=== PATIENT | male | born 1960 | race American Indian/Alaskan Native ===

== ENCOUNTER 2021-03-04 11:15 | Observation (INO) | payer MEDICARE ==
[2021-03-04 12:17] LABS: Basophils % (Auto) 0.7 % (0.0-1.8); Eosinophils # (Auto) 0.3 K/mm3 (0.0-0.4); Eosinophils % (Auto) 6.9 % (0.0-4.3); Hematocrit 28.2 % (35.5-45.6); Hemoglobin 9.1 gm/dl (11.8-15.2); Lymphocytes # (Auto) 1.2 K/mm3 (1.2-5.4); Lymphocytes % (Auto) 24.9 % (13.4-35.0); Mean Corpuscular HGB Conc 32 % (32-34); Mean Corpuscular Volume 89 fl (84-94); Monocytes # (Auto) 0.4 K/mm3 (0.0-0.8); Monocytes % (Auto) 8.1 % (0.0-7.3); Platelet Count 197 K/mm3 (140-440); Red Blood Count 3.17 M/mm3 (3.65-5.03); Red Cell Distribution Width 16.6 % (13.2-15.2)
[2021-03-04 12:31] LABS: Calcium 8.6 mg/dL (8.4-10.2)
[2021-03-04] MEDS ORDERED: INSULIN REGULAR, HUMAN 100 UNITS/1 ML IV ONE (14:01)
[2021-03-04] MEDS ORDERED: ALBUTEROL 2.5 MG/3 ML NEBU IH ONE (14:01)
[2021-03-04] MEDS ORDERED: DEXTROSE 50% IN WATER (25GM) 50 ML SYRINGE IV ONE (14:01)
--- NOTE | 2021-03-04 14:09 | Emergency Department Report ---
HPI - General Chief Complaint: Dyspnea/Respdistress Time Seen by Provider: 03/04/21 13:54 - HPI HPI: This is a 60-year-old -[place]er male presents to the emergency department with the complaint of missing his last 3 weeks of dialysis. The patient lives in [place] but is up here for a job and never got set up for temporary dialysis in [place]. He admits to some mild shortness of breath and some dizziness/lightheadedness. He has a left arm fistula for vascular access. He denies any fever, cough, lower extremity swelling, nausea, vomiting, d iaphoresis. He also has a past medical history of hypertension. He has not taken anything for symptoms prior to presentation today. ED Past Medical Hx - Past Medical History Previous Medical History?: Yes Hx Hypertension: Yes Additional medical history: left arm fistula for HD - Surgical History Past Surgical History?: Yes Additional Surgical History: left arm fistula - Social History Smoking Status: Never Smoker Substance Use Type: None ED Review of Systems ROS: Stated complaint: DIALYSIS Other details as noted in HPI Comment: All other systems reviewed and negative Constitutional: denies: chills, fever Eyes: denies: eye pain, vision change ENT: denies: ear pain, throat pain Respiratory: shortness of breath. denies: cough Cardiovascular: denies: chest pain, palpitations Gastrointestinal: denies: abdominal pain, vomiting Genitourinary: denies: dysuria, discharge Musculoskeletal: denies: back pain, arthralgia Skin: denies: rash, lesions Neurological: denies: headache, weakness Physical Exam - Physical Exam Vital Signs: Vital Signs 03/04/21 11:31 Temperature 97.9 F Pulse Rate 73 Respiratory 20 Rate Blood Pressure 179/106 O2 Sat by Pulse 99 Oximetry Physical Exam: GENERAL: The patient is well-developed well-nourished. HENT: Normocephalic. Atraumatic. Patient has moist mucous membranes. EYES: Extraocular motions are intact. NECK: Supple. Trachea is midline. CHEST/LUNGS: Slightly coarse breath sounds. No tachypnea or accessory muscle use. HEART/CARDIOVASCULAR: Regular. There is no tachycardia. There is no murmur. ABDOMEN: Abdomen is soft, nontender. Patient has normal bowel sounds. There is no abdominal distention. SKIN: Skin is warm and dry. NEURO: The patient is awake, alert, and oriented. The patient is cooperative. The patient has no focal neurologic deficits. Normal speech. MUSCULOSKELETAL: There is no tenderness or deformity. There is no limitation range of motion. There is a patent left upper extremity dialysis fistula. ED Course Vital Signs 03/04/21 11:31 Temperature 97.9 F Pulse Rate 73 Respiratory 20 Rate Blood Pressure 179/106 O2 Sat by Pulse 99 Oximetry - Consultations Consultation #1: 03/04/21 14:08 I spoke to the patent chemist on-call, Dr. Foley, who is going to get the patient emergent dialysis this afternoon. ED Medical Decision Making - Lab Data Result diagrams: 03/04/21 11:57 03/04/21 11:57 Lab Results 03/04/21 03/04/21 Range/Units 11:57 11:57 WBC 4.9 (4.5-11.0) K/mm3 RBC 3.17 L (3.65-5.03) M/mm3 Hgb 9.1 L (11.8-15.2) gm/dl Hct 28.2 L (35.5-45.6) % MCV 89 (84-94) fl MCH 29 (28-32) pg MCHC 32 (32-34) % RDW 16.6 H (13.2-15.2) % Plt Count 197 (140-440) K/mm3 Lymph % (Auto) 24.9 (13.4-35.0) % [place] % (Auto) 8.1 H (0.0-7.3) % Eos % (Auto) 6.9 H (0.0-4.3) % Baso % (Auto) 0.7 (0.0-1.8) % Lymph # (Auto) 1.2 (1.2-5.4) K/mm3 [place] # (Auto) 0.4 (0.0-0.8) K/mm3 Eos # (Auto) 0.3 (0.0-0.4) K/mm3 Baso # (Auto) 0.0 (0.0-0.1) K/mm3 Seg Neutrophils % 59.4 (40.0-70.0) % Seg Neutrophils # 2.9 (1.8-7.7) K/mm3 Sodium 141 (137-145) mmol/L Potassium 7.4 H* (3.6-5.0) mmol/L Chloride 105.2 (98-107) mmol/L Carbon Dioxide 15 L (22-30) mmol/L Anion Gap 28 mmol/L BUN 121 H (9-20) mg/dL Creatinine 20.9 H (0.8-1.3) mg/dL Estimated GFR 2 ml/min BUN/Creatinine Ratio 6 % Glucose 104 H (75-100) mg/dL Calcium 8.6 (8.4-10.2) mg/dL - EKG Data -: EKG Interpreted by Me EKG shows normal: sinus rhythm, axis (Left axis deviation), intervals, QRS complexes, ST-T waves (There are some tented T waves to the anterolateral leads) Rate: normal - EKG Data When compared to previous EKG there are: previous EKG unavailable Interpretation: other (Sinus rhythm at 64 bpm, left axis deviation, normal intervals. No ST elevation NV. There are some tented T waves to the anterolateral leads.) - Radiology Data Radiology results: image reviewed interpreted by me: Chest x-ray shows some hyperinflation of the lungs. There is some mild cardiomegaly. No pleural effusions. No obvious pneumonia. No pneumothorax. - Medical Decision Making This patient presents to the emergency department with a complaint that he has missed his last 3 weeks of dialysis as he is visiting here from [place] and did not get dialysis set up here. He has some mild shortness of breath. He does not appear in any respiratory distress. Potassium came back at 7.5. The patient also has some uremia with a BUN of 120. Nephrology was contacted and consulted and they will provide emergency dialysis this afternoon. Patient was given albuterol, calcium, insulin and D50 for the hyperkalemia. He will be admitted to the hospital for dialysis and further evaluation and was accepted for admission by the hospitalist, Dr. Eagle. Critical Care Time: Yes Critical care time in (mins) excluding proc time.: 31 Critical care attestation.: If time is entered above; I have spent that time in minutes in the direct care of this critically ill patient, excluding procedure time. Critical care time was spent on this patient in doing his initial evaluation, multiple reevaluations, ordering and interpretation of labs and imaging, medications for treatment of the hyperkalemia, discussion with the nephrology service. Critical Care Time: 31 minutes ED Disposition Clinical Impression: ESRD needing dialysis, Hyperkalemia, Missed dialysis, Hypertensive urgency Disposition: DC-09 OP ADMIT IP TO THIS HOSP Is pt being admited?: Yes Condition: Serious Instructions: Hypertension (ED) Time of Disposition: 15:15
[2021-03-04] MEDS ORDERED: SODIUM CHLORIDE 0.9% 100 ML IV PRN (14:30)
[2021-03-04] MEDS ORDERED: CALCIUM GLUCONATE 1,000 MG in SODIUM CHLORIDE 0.9% 100 ML IV ONE (14:30)
--- NOTE | 2021-03-04 14:39 | XRay Report ---
CHEST 2 VIEWS INDICATION: SOB. COMPARISON: None. FINDINGS: Support devices: None. Heart: Within normal limits. Lungs/Pleura: Right lung clear. Mild atelectasis versus scarring left base. Mild underlying COPD. N o significant pleural effusion. IMPRESSION: Mild atelectasis versus scarring left base. Signer Name: Candido Lewis MD Signed: 03/04/2021 2:35 PM Workstation Name: [id number]
[2021-03-04 16:14] LABS: Hepatitis B Surface Antigen Non-Reactive (Negative); Hepatitis C Virus Antibody Non-Reactive (NonReactive)
--- NOTE | 2021-03-04 21:52 | History and Physical Report ---
History of Present Illness Date of examination: 03/04/21 Date of admission: 03/04/21 19:16 Chief complaint: Shortness of breath for couple of days History of present illness: This is a 60-year-old -[place] male presents to the emergency department with the complaint of missing his last 3 weeks of dialysis. The patient lives in [place] but is up here for a job and never got set up for temporary dialysis in [place]. He admits to some mild shortness of breath and some dizziness/lightheadedness. He has a left arm fistula for vascular access. He denies any fever, cough, lower extremity swelling, nausea, vomiting, diaphoresis. He also has a past medical history of hypertension. He has not taken anything for symptoms prior to presentation today. - Past Medical History Previous Medical History?: Yes Hx Hypertension: Yes Additional medical history: left arm fistula for HD - Surgical History Past Surgical History?: Yes Additional Surgical History: left arm fistula - Social History Smoking Status: Never Smoker Substance Use Type: None Family history Htn Review of Systems ROS: Stated complaint: DIALYSIS Other details as noted in HPI Comment: All other systems reviewed and negative Constitutional: denies: chills, fever Eyes: denies: eye pain, vision change ENT: denies: ear pain, throat pain Respiratory: shortness of breath. denies: cough Cardiovascular: denies: chest pain, palpitations Gastrointestinal: denies: abdominal pain, vomiting Genitourinary: denies: dysuria, discharge Musculoskeletal: denies: back pain, arthralgia Skin: denies: rash, lesions Neurological: denies: headache, weakness Medications and Allergies Allergies Allergy/AdvReac Type Severity Reaction Status Date / Time No Known Allergies Allergy Unverified 03/04/21 11:30 Home Medications Medication Instructions Recorded Confirmed Last Taken Type carvediloL [Coreg] 6.25 mg PO BID 03/05/21 03/05/21 03/03/21 21:00 History hydrALAZINE [Apresoline TAB] 100 mg PO TID 03/05/21 03/05/21 03/03/21 21:00 History labetaloL [Labetalol 200mg TAB] 200 mg PO BID 03/05/21 03/05/21 03/03/21 21:00 History Active Meds: Active Medications Sodium Chloride (Nacl 0.9%) 100 mls @ 999 mls/hr IV RICHIE PRN PRN Reason: Hypotension Exam - Constitutional Vitals: Temp Pulse Resp BP Pulse Ox 98.2 F 84 14 173/91 100 03/04/21 19:45 03/04/21 21:30 03/04/21 20:45 03/04/21 21:30 03/04/21 20:45 General appearance: Present: no acute distress, well-nourished - EENT Eyes: Present: PERRL ENT: hearing intact, clear oral mucosa - Neck Neck: Present: supple, normal ROM - Respiratory Respiratory effort: normal Respiratory: bilateral: CTA - Cardiovascular Heart rate: 78 Rhythm: regular Heart Sounds: Present: S1 & S2. Absent: rub, click - Extremities Extremities: pulses symmetrical, No edema Peripheral Pulses: within normal limits - Abdominal General gastrointestinal: Present: soft, non-tender, non-distended, normal bowel sounds Male genitourinary: Present: normal - Rectal Rectal Exam: deferred - Integumentary Integumentary: Present: clear, warm, dry - Musculoskeletal Musculoskeletal: gait normal, strength equal bilaterally - Psychiatric Psychiatric: appropriate mood/affect, intact judgment & insight - Neurologic Neurologic: CNII-XII intact, moves all extremities Results - Labs CBC & Chem 7: 03/05/21 05:06 03/05/21 05:06 Labs: Laboratory Last Values WBC 4.9 K/mm3 (4.5-11.0) 03/04/21 11:57 RBC 3.17 M/mm3 (3.65-5.03) L 03/04/21 11:57 Hgb 9.1 gm/dl (11.8-15.2) L 03/04/21 11:57 Hct 28.2 % (35.5-45.6) L 03/04/21 11:57 MCV 89 fl (84-94) 03/04/21 11:57 MCH 29 pg (28-32) 03/04/21 11:57 MCHC 32 % (32-34) 03/04/21 11:57 RDW 16.6 % (13.2-15.2) H 03/04/21 11:57 Plt Count 197 K/mm3 (140-440) 03/04/21 11:57 Lymph % (Auto) 24.9 % (13.4-35.0) 03/04/21 11:57 [place] % (Auto) 8.1 % (0.0-7.3) H 03/04/21 11:57 Eos % (Auto) 6.9 % (0.0-4.3) H 03/04/21 11:57 Baso % (Auto) 0.7 % (0.0-1.8) 03/04/21 11:57 Lymph # (Auto) 1.2 K/mm3 (1.2-5.4) 03/04/21 11:57 [place] # (Auto) 0.4 K/mm3 (0.0-0.8) 03/04/21 11:57 Eos # (Auto) 0.3 K/mm3 (0.0-0.4) 03/04/21 11:57 Baso # (Auto) 0.0 K/mm3 (0.0-0.1) 03/04/21 11:57 Seg Neutrophils % 59.4 % (40.0-70.0) 03/04/21 11:57 Seg Neutrophils # 2.9 K/mm3 (1.8-7.7) 03/04/21 11:57 Sodium 141 mmol/L (137-145) 03/04/21 11:57 Potassium 7.4 mmol/L (3.6-5.0) H* 03/04/21 11:57 Chloride 105.2 mmol/L (98-107) 03/04/21 11:57 Carbon Dioxide 15 mmol/L (22-30) L 03/04/21 11:57 Anion Gap 28 mmol/L 03/04/21 11:57 BUN 121 mg/dL (9-20) H 03/04/21 11:57 Creatinine 20.9 mg/dL (0.8-1.3) H 03/04/21 11:57 Estimated GFR 2 ml/min 03/04/21 11:57 BUN/Creatinine Ratio 6 % 03/04/21 11:57 Glucose 104 mg/dL (75-100) H 03/04/21 11:57 Calcium 8.6 mg/dL (8.4-10.2) 03/04/21 11:57 Hepatitis A IgM Ab Non-reactive (NonReactive) 03/04/21 15:15 Hep Bs Antigen Non-reactive (Negative) 03/04/21 15:15 Hep B Core IgM Ab Non-reactive (NonReactive) 03/04/21 15:15 Hepatitis C Antibody Non-reactive (NonReactive) 03/04/21 15:15 - Imaging and Cardiology EKG: report reviewed (Sinus rhythm no acute ST-T wave changes) Chest x-ray: report reviewed Imaging and Cardiology: 4151 chest x-ray mild atelectasis versus scarring left lobe Assessment and Plan Advance Directives: Yes (Full code) VTE prophylaxis?: Chemical Plan of care discussed with patient/family: Yes - Patient Problems (1) Volume overload Current Visit: Yes Status: Acute Plan to address problem: Secondary to missed hemodialysis for for 2 weeks Needs emergent hemodialysis May be needs discharge tomorrow after hemodialysis (2) Hypertensive emergency Current Visit: Yes Status: Acute Plan to address problem: Secondary to noncompliance Antihypertensives started IV hydralazine 10 mg every 3 as needed (3) Hyperkalemia Current Visit: Yes Status: Acute Plan to address problem: Treated in the emergency room and also patient to get emergent hemodialysis Low potassium bath (4) DVT prophylaxis Current Visit: Yes Status: Acute Plan to address problem: On heparin and GI prophylaxis
[2021-03-04] MEDS ORDERED: oxyCODONE /ACETAMINOPHEN 5-325MG TAB PO PRN (21:53)
[2021-03-04] MEDS ORDERED: ACETAMINOPHEN 325 MG TAB PO PRN (21:53)
[2021-03-04] MEDS ORDERED: ONDANSETRON 4 MG/2 ML INJ IV PRN (21:53)
[2021-03-04] MEDS ORDERED: MORPHINE 2 MG/1 ML INJ IV PRN (21:53)
[2021-03-04] MEDS: FAMOTIDINE 10 MG TAB PO SCH (23:52)
[2021-03-05 06:02] LABS: Eosinophils # (Auto) 0.3 K/mm3 (0.0-0.4); Eosinophils % (Auto) 6.9 % (0.0-4.3); Hematocrit 27.7 % (35.5-45.6); Hemoglobin 9.2 gm/dl (11.8-15.2); Lymphocytes # (Auto) 1.1 K/mm3 (1.2-5.4); Lymphocytes % (Auto) 24.3 % (13.4-35.0); Mean Corpuscular HGB Conc 33 % (32-34); Mean Corpuscular Volume 86 fl (84-94); Monocytes # (Auto) 0.5 K/mm3 (0.0-0.8); Monocytes % (Auto) 11.9 % (0.0-7.3); Platelet Count 189 K/mm3 (140-440); Red Cell Distribution Width 16.1 % (13.2-15.2)
[2021-03-05] MEDS: hydrALAZINE 100 MG TAB PO SCH ×2 (06:16→13:28)
[2021-03-05 06:17] LABS: Calcium 8.6 mg/dL (8.4-10.2)
[2021-03-05 06:23] LABS: Albumin 4.4 g/dL (3.9-5); Blood Urea Nitrogen 55 mg/dL (9-20); Calcium 9.2 mg/dL (8.4-10.2); Hemolysis Index 5
[2021-03-05 06:28] LABS: Alanine Aminotransferase < 5 units/L (7-56); BUN/Creatinine Ratio 5
--- NOTE | 2021-03-05 09:38 | Progress Note ---
Assessment and Plan - Patient Problems (1) Hyperkalemia Current Visit: Yes Status: Acute Plan to address problem: Hyperkalemia 2/2 missed HD, improved with HD. cont 2g K renal diet. (2) ESRD needing dialysis Current Visit: Yes Status: Acute Plan to address problem: Cont HD on TTS schedule while inpatient. Case management consultation for outpatient HD arrangement. (3) Hypertensive chronic kidney disease with stage 5 chronic kidney disease or end stage renal disease Current Visit: Yes Status: Acute (4) Acidosis Current Visit: Yes Status: Acute Plan to address problem: corrected with HD (5) Anemia in chronic kidney disease, on chronic dialysis Current Visit: Yes Status: Acute Plan to address problem: start EPO with HD Subjective Date of service: 03/05/21 Principal diagnosis: ESRD Interval history: This is a 60yo AA male with past medical history of hypertension, ESRD, who presents to the emergency department requesting HD after missing his last 3 weeks of dialysis. Patient recently moved from [place] for a new job and however did not set up for dialysis in [place]. He admits to some mild shortness of breath and some dizziness/lightheadedness. He denies any fever, cough, lower extremity swelling, nausea, vomiting, diaphoresis. Labs showed elevated BUN/Cr at 121/20.9 along with significant hyperkalemia with K at 7.4. Renal consult is requested for management ESRD/hyperkalemia Objective - Vital Signs Vital signs: Vital Signs - 12hr 03/04/21 03/04/21 03/04/21 21:45 22:00 22:01 Temperature 98.6 F Pulse Rate 88 78 87 Respiratory 13 14 Rate Blood Pressure 168/86 159/99 159/99 O2 Sat by Pulse 100 100 Oximetry 03/04/21 03/04/21 03/04/21 22:15 22:30 22:45 Temperature Pulse Rate 76 89 83 Respiratory 12 Rate Blood Pressure 169/104 170/104 170/104 O2 Sat by Pulse 100 Oximetry 03/04/21 03/04/21 03/04/21 23:00 23:15 23:30 Temperature Pulse Rate 76 80 85 Respiratory 14 Rate Blood Pressure 177/111 175/109 180/104 O2 Sat by Pulse 100 Oximetry 03/04/21 03/04/21 03/04/21 23:39 23:41 23:51 Temperature Pulse Rate 84 83 80 Respiratory 14 13 11 L Rate Blood Pressure 180/104 170/101 170/101 O2 Sat by Pulse 65 L Oximetry 03/05/21 03/05/21 03/05/21 00:01 00:06 00:11 Temperature 98.2 F Pulse Rate 80 89 73 Respiratory 13 20 11 L Rate Blood Pressure 178/108 179/102 167/86 O2 Sat by Pulse Oximetry 03/05/21 03/05/21 03/05/21 00:21 00:30 00:43 Temperature 97.9 F Pulse Rate 71 81 76 Respiratory 11 L 14 16 Rate Blood Pressure 167/86 171/104 177/104 O2 Sat by Pulse 97 Oximetry 03/05/21 03/05/21 04:07 07:41 Temperature 98.6 F 98.0 F Pulse Rate 81 93 H Respiratory 18 18 Rate Blood Pressure 179/98 191/106 O2 Sat by Pulse 96 95 Oximetry - General Appearance General appearance: well-developed, well-nourished, appears stated age EENT: ATNC, PERRL, mucous membranes moist Neck: no JVD Respiratory: Present: Clear to Ascultation Cardiology: regular, S1S2 Gastrointestinal: normoactive bowel sounds Integumentary: no rash, other (no edema ) Neurologic: no focal deficit, alert and oriented x3, strength 5/5, CN 3-12 intact Psychiatric: mood/affect appropriate, cooperative - Lab 03/05/21 05:06 03/05/21 05:06 Most recent lab results Calcium 8.6 mg/dL (8.4-10.2) 03/05/21 05:06 Calcium 9.2 mg/dL (8.4-10.2) 03/05/21 05:06 Medications & Allergies - Medications Allergies/Adverse Reactions: Allergies No Known Allergies Allergy (Unverified 03/04/21 11:30) Home Medications: Home Medications Medication Instructions Recorded Confirmed Last Taken Type carvediloL [Coreg] 6.25 mg PO BID 03/05/21 03/05/21 03/03/21 21:00 History hydrALAZINE [Apresoline TAB] 100 mg PO TID 03/05/21 03/05/21 03/03/21 21:00 History labetaloL [Labetalol 200mg TAB] 200 mg PO BID 03/05/21 03/05/21 03/03/21 21:00 History Active Medications: Generic Name Dose Route Start Last Admin Trade Name Freq PRN Reason Stop Dose Admin Acetaminophen 650 mg 03/04/21 21:53 Acetaminophen 325 Mg Tab PO Q4H PRN Pain MILD(1-3)/Fever >100.5/MCLAIN Carvedilol 6.25 mg 03/05/21 10:00 Carvedilol 6.25 Mg Tab PO BID DREW Famotidine 10 mg 03/04/21 22:00 03/04/21 23:52 Famotidine 10 Mg Tab PO 10 mg BID DREW Administration Hydralazine HCl 100 mg 03/05/21 06:00 03/05/21 06:16 Hydralazine 100 Mg Tab PO 100 mg TID DREW Administration Sodium Chloride 100 mls @ 999 mls/hr 03/04/21 14:30 Nacl 0.9% IV RICHIE PRN Hypotension Labetalol HCl 200 mg 03/05/21 10:00 Labetalol 200 Mg Tab PO BID DREW Morphine Sulfate 2 mg 03/04/21 21:53 Morphine 2 Mg/1 Ml Inj IV Q4H PRN Pain, Moderate (4-6) Ondansetron HCl 4 mg 03/04/21 21:53 Ondansetron 4 Mg/2 Ml Inj IV Q8H PRN Nausea And Vomiting Oxycodone/Acetaminophen 1 tab 03/04/21 21:53 Oxycodone /Acetaminophen 5-325mg Tab PO Q6H PRN Pain, Moderate (4-6) Sodium Chloride 10 ml 03/04/21 22:00 03/04/21 22:09 Sodium Chloride 0.9% 10 Ml Flush Syringe IV 10 ml BID DREW Administration Sodium Chloride 10 ml 03/04/21 21:53 Sodium Chloride 0.9% 10 Ml Flush Syringe IV PRN PRN LINE FLUSH
[2021-03-05] MEDS: FAMOTIDINE 10 MG TAB PO SCH (09:44)
[2021-03-05] MEDS ORDERED: SODIUM CHLORIDE 0.9% 100 ML IV PRN (09:53)
[2021-03-05] MEDS ORDERED: carvediloL 6.25 MG TAB PO SCH (10:00)
--- NOTE | 2021-03-05 12:37 | Discharge Summary ---
Providers - Providers Date of Admission: 03/04/21 19:16 Date of discharge: 03/05/21 Attending physician: AMBER DELGADO 03/04/21 14:03 Consult to Physician [CONS] Routine Comment: Consulting Provider: ALONA ROSA Physician Instructions: Reason For Exam: Hyperkalemia, ESRD needing dialysis Primary care physician: [facility] Hospitalization Condition: Fair Hospital course: 60-year-old moved here 3 weeks ago for a job. Patient has job interview tomorrow which is very important. Has a history of hypertension presented 3 weeks ago has not been able to find a hemodialysis station. Patient was here for emergent dialysis. Was evaluated and seen by Dr. Reyes patient was dilated appropriately. State he felt much better. The symptoms he had was mild shortness of breath the fatigue has resolved. Patient states he is back to his baseline and wants to go to the job interview [place] been very important. Disposition: DC- TO HOME OR SELFCARE Final Discharge Diagnosis (Prints w/discharge instructions): Volume overload end-stage renal disease - Discharge Diagnoses (1) ESRD needing dialysis Status: Acute Core Measure Documentation - Palliative Care Palliative Care/ Comfort Measures: Not Applicable - Core Measures Any of the following diagnoses?: none Exam - Constitutional Vitals: Temp Pulse Resp BP Pulse Ox 98.0 F 74 18 182/108 100 03/05/21 11:22 03/05/21 11:22 03/05/21 11:22 03/05/21 11:22 03/05/21 11:22 General appearance: Present: no acute distress, well-nourished - EENT Eyes: Present: PERRL ENT: hearing intact, clear oral mucosa - Neck Neck: Present: supple, normal ROM - Respiratory Respiratory effort: normal Respiratory: bilateral: CTA - Cardiovascular Heart Sounds: Present: S1 & S2. Absent: rub, click - Extremities Extremities: pulses symmetrical, No edema Peripheral Pulses: within normal limits - Abdominal General gastrointestinal: Present: soft, non-tender, non-distended, normal bowel sounds Male genitourinary: Present: normal - Integumentary Integumentary: Present: clear, warm, dry - Musculoskeletal Musculoskeletal: gait normal, strength equal bilaterally - Psychiatric Psychiatric: appropriate mood/affect, intact judgment & insight - Neurologic Neurologic: CNII-XII intact, moves all extremities Plan Activity: no restrictions Diet: renal Special Instructions: restrict fluid intake to (1.5)
[2021-03-05 13:29] VITALS: BP 148/77
--- NOTE | 2021-03-08 11:06 | Electrocardiograph Report ---
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
== END 2021-03-05 13:50 | disposition home or self-care (01) ==
LOC: EDBD → ED 11:15 → INTOOBSV 19:16 → 4A 19:16 → EDBD 19:16
PROVIDERS: ADMIT Internal Medicine; ATTEND Internal Medicine
DX: E87.70 Fluid overload, unspecified (principal); Z20.822 Contact with and (suspected) exposure to COVID-19; I16.1 Hypertensive emergency; I12.0 Hypertensive chronic kidney disease with stage 5 chronic kidney disease or end stage renal disease; N18.6 End stage renal disease; E87.5 Hyperkalemia; E87.2 Acidosis; D63.1 Anemia in chronic kidney disease; Z79.899 Other long term (current) drug therapy; Z98.890 Other specified postprocedural states; Z99.2 Dependence on renal dialysis
CPT/HCPCS: 36415; 71046; 80048; 80053; 80074; 83036; 85025; 93005; 94644; 96365; 96375; 99291; G0257; G0378; J0610; U0003; J1815

== ENCOUNTER 2021-03-08 13:55 | Observation (INO) | payer MEDICARE ==
--- NOTE | 2021-03-08 14:32 | Emergency Department Report ---
ED General Adult HPI - General Chief complaint: Medical Clearance Stated complaint: DIALYSIS Time Seen by Provider: 03/08/21 14:21 Source: patient Mode of arrival: Ambulatory Limitations: No Limitations - History of Present Illness Initial comments: Patient is 60 years old male with history of end-stage renal disease on hemodialysis, Friday and Friday. Patient recently moved from [place] for job.. Patient was seen here Friday and had an emergency dialysis. Patient stated that he does not have a local dialysis center yet. Patient is com plaining of shortness of breath especially when he woke. Patient denied any headache, chest pain, weakness numbness or tingling sensation. - Related Data Home Medications Medication Instructions Recorded Confirmed Last Taken carvediloL [Coreg] 6.25 mg PO BID 03/05/21 03/05/21 03/03/21 21:00 hydrALAZINE [Apresoline TAB] 100 mg PO TID 03/05/21 03/05/21 03/03/21 21:00 labetaloL [Labetalol 200mg TAB] 200 mg PO BID 03/05/21 03/05/21 03/03/21 21:00 Allergies Allergy/AdvReac Type Severity Reaction Status Date / Time No Known Allergies Allergy Verified 03/08/21 13:58 ED Review of Systems ROS: Stated complaint: DIALYSIS Other details as noted in HPI Comment: All other systems reviewed and negative Constitutional: denies: chills, fever Respiratory: shortness of breath, SOB with exertion. denies: cough, SOB at rest, wheezing Cardiovascular: denies: chest pain, palpitations Gastrointestinal: denies: abdominal pain, nausea, vomiting Musculoskeletal: denies: back pain Neurological: denies: headache, weakness, numbness, paresthesias, confusion, abnormal gait ED Past Medical Hx - Past Medical History Hx Hypertension: Yes Hx Renal Disease: Yes (MWF DIALYSIS) Additional medical history: left arm fistula for HD - Surgical History Additional Surgical History: left arm fistula - Social History Smoking Status: Never Smoker Substance Use Type: None - Medications Home Medications: Home Medications Medication Instructions Recorded Confirmed Last Taken Type carvediloL [Coreg] 6.25 mg PO BID 03/05/21 03/05/21 03/03/21 21:00 History hydrALAZINE [Apresoline TAB] 100 mg PO TID 03/05/21 03/05/21 03/03/21 21:00 History labetaloL [Labetalol 200mg TAB] 200 mg PO BID 03/05/21 03/05/21 03/03/21 21:00 History ED Physical Exam - General Limitations: No Limitations General appearance: alert, in no apparent distress - Head Head exam: Present: atraumatic, normocephalic, normal inspection - Eye Eye exam: Present: normal appearance, PERRL - ENT ENT exam: Present: normal exam, normal orophraynx, mucous membranes moist - Neck Neck exam: Present: normal inspection, full ROM. Absent: tenderness, meningismus - Respiratory Respiratory exam: Present: normal lung sounds bilaterally - Cardiovascular Cardiovascular Exam: Present: regular rate, normal rhythm, normal heart sounds - GI/Abdominal GI/Abdominal exam: Present: soft, normal bowel sounds. Absent: distended, tend erness, guarding, rebound, rigid, organomegaly, mass, bruit, pulsatile mass, hernia - Extremities Exam Extremities exam: Present: normal inspection, full ROM, normal capillary refill. Absent: tenderness - Back Exam Back exam: Present: normal inspection, full ROM. Absent: CVA tenderness (R), CVA tenderness (L) - Neurological Exam Neurological exam: Present: alert, oriented X3, CN II-XII intact, normal gait, reflexes normal. Absent: motor sensory deficit - Psychiatric Psychiatric exam: Present: normal mood - Skin Skin exam: Present: warm, intact, normal color ED Course Vital Signs 03/08/21 03/08/21 03/08/21 14:01 15:02 15:23 Temperature 98.7 F 98.1 F Pulse Rate 97 H 87 Respiratory 20 15 14 Rate Blood Pressure 175/103 Blood Pressure 172/98 [Right] O2 Sat by Pulse 99 97 Oximetry 03/08/21 15:24 Temperature Pulse Rate 86 Respiratory 13 Rate Blood Pressure 172/98 Blood Pressure [Right] O2 Sat by Pulse 98 Oximetry ED Medical Decision Making - Lab Data Result diagrams: 03/08/21 14:29 03/08/21 14:29 - Radiology Data Radiology results: report reviewed - Medical Decision Making Patient is 60 years old male with history of end-stage renal disease on hemodialysis, Friday and Friday. Patient recently moved from [place] for job.. Patient was seen here Friday and had an emergency dialysis. Patient stated that he does not have a local dialysis center yet. Patient is complaining of shortness of breath especially when he woke. Patient denied any headache, chest pain, weakness numbness or tingling sensation. Blood pressure is 175/110 3. Chest x-ray showed pulmonary edema consistent with volume overload. Her potassium is 5.6. Patient received dextrose and insulin. I discussed the patient with Dr. Correa, cone machine feeder on-call, he stated that he will order for emergency dialysis. Discussed the patient with Dr. Obando, he agreed to admit the patient to medical service for further management. Critical Care Time: Yes Critical care time in (mins) excluding proc time.: 30 Critical care attestation.: If time is entered above; I have spent that time in minutes in the direct care of this critically ill patient, excluding procedure time. ED Disposition Clinical Impression: ESRD needing dialysis, Acute hyperkalemia, Volume overload Disposition: OP ADMIT IP TO THIS HOSP Is pt being admited?: Yes Condition: Stable
[2021-03-08 14:48] LABS: Basophils # (Auto) 0.1 K/mm3 (0.0-0.1); Basophils % (Auto) 1.2 % (0.0-1.8); Eosinophils # (Auto) 0.4 K/mm3 (0.0-0.4); Eosinophils % (Auto) 8.4 % (0.0-4.3); Hematocrit 24.5 % (35.5-45.6); Lymphocytes # (Auto) 1.2 K/mm3 (1.2-5.4); Lymphocytes % (Auto) 26.1 % (13.4-35.0); Mean Corpuscular HGB Conc 33 % (32-34); Mean Corpuscular Volume 88 fl (84-94); Monocytes # (Auto) 0.5 K/mm3 (0.0-0.8); Monocytes % (Auto) 11.2 % (0.0-7.3); Platelet Count 195 K/mm3 (140-440); Red Blood Count 2.77 M/mm3 (3.65-5.03); Red Cell Distribution Width 16.1 % (13.2-15.2)
[2021-03-08 15:01] LABS: Calcium 8.5 mg/dL (8.4-10.2)
--- NOTE | 2021-03-08 15:02 | XRay Report ---
CHEST 1 VIEW 03/08/2021 1:57 PM INDICATION / CLINICAL INFORMATION: SOB. COMPARISON: 03/04/21 FINDINGS: SUPPORT DEVICES: None. HEART / MEDIASTINUM: No significant abnormality. LUNGS / PLEURA: No significant pulmonary or pleural abnormality. No pneumothorax. ADDITIONAL FINDINGS: No significant additional findings. IMPRESSION: 1. No acute findings. Signer Name: Bobby Rogers MD Signed: 03/08/2021 2:58 PM Workstation Name: [id number]
[2021-03-08] MEDS ORDERED: INSULIN REGULAR, HUMAN 100 UNITS/1 ML IV ONE (15:38)
[2021-03-08] MEDS ORDERED: DEXTROSE 50% IN WATER (25GM) 50 ML SYRINGE IV ONE (15:38)
--- NOTE | 2021-03-08 17:01 | History and Physical Report ---
History of Present Illness Chief complaint: I need dialysis History of present illness: 60 YO Male with HTN, ESRD presents to ED for evaluation. Patient reports "I need dialysis. Patient states that he has not undergone his routine dialysis session over the past 3 weeks. Patient states that he has experienced shortness of breath, lightheadedness, over the past 1 day. Patient transported to [facility] via private vehicle for further care and evaluation of the aforementioned symptoms. The patient was seen and evaluated in the emergency department. All lab and imaging studies reviewed. Patient found to have end-stage renal disease in need of urgent dialysis, metabolic acidosis, and hyperkalemia. Nephrology team consulted in ED for urgent dialysis. Patient placed in observation status and admitted to medical floor. Patient denies fever, chills, chest pain, palpitation, productive cough, skin rash, recent ill contacts, known exposure to COVID-19. No prior admission for review. All medication listed at time of admission has been reconciled. Advanced care planning conducted in ED. Past History Past Medical History: ESRD, hypertension Past Surgical History: Other (Dialysis access) Social history: single. denies: smoking, alcohol abuse, prescription drug abuse Family history: hypertension Medications and Allergies Allergies Allergy/AdvReac Type Severity Reaction Status Date / Time No Known Allergies Allergy Verified 03/08/21 13:58 Home Medications Medication Instructions Recorded Confirmed Last Taken Type carvediloL [Coreg] 6.25 mg PO BID 03/05/21 03/05/21 03/03/21 21:00 History hydrALAZINE [Apresoline TAB] 100 mg PO TID 03/05/21 03/05/21 03/03/21 21:00 History labetaloL [Labetalol 200mg TAB] 200 mg PO BID 03/05/21 03/05/21 03/03/21 21:00 History Review of Systems Constitutional: no weight loss, no weight gain, no fever, no chills Ears, nose, mouth and throat: no ear discharge, no decreased hearing, no nose pain, no nasal congestion, no sinus pressure Cardiovascular: no chest pain, no palpitations, no rapid/irregular heart beat, no syncope, no lightheadedness Respiratory: no cough, no excessive sputum, no hemoptysis, no shortness of breath Gastrointestinal: nausea, no abdominal pain, no vomiting, no hematemesis Genitourinary Male: no dysuria, no hematuria, no discharge, no urinary frequency, no urinary hesitancy, no nocturia, no erectile dysfunction Rectal: no pain, no bleeding Musculoskeletal: no neck pain, no arm numbness/tingling, no low back pain, no shooting leg pain Integumentary: no rash, no pruritis, no redness, no sores Neurological: no head injury, no transient paralysis, no paralysis, no weakness, no numbness, no seizures, no tremors, no ataxia Psychiatric: no anxiety, no change in sleep habits, no sleep disturbances, no hypersomnia, no change in appetite, no disorientation Endocrine: no cold intolerance, no heat intolerance, no excessive thirst, no polyuria, no nocturia, no excessive sweating, no weight change Hematologic/Lymphatic: no easy bruising, no easy bleeding, no lymphadenopathy Allergic/Immunologic: no urticaria, no allergic rhinitis, no wheezing, no persistent infections Exam - Constitutional Vitals: Temp Pulse Resp BP Pulse Ox 98.1 F 86 13 172/98 98 03/08/21 15:02 03/08/21 15:24 03/08/21 15:24 03/08/21 15:24 03/08/21 15:24 General appearance: Present: mild distress - EENT Eyes: Present: PERRL ENT: hearing intact, clear oral mucosa - Neck Neck: Present: supple, normal ROM - Respiratory Respiratory effort: normal Respiratory: bilateral: diminished, rhonchi - Cardiovascular Heart Sounds: Present: S1 & S2. Absent: rub, click - Extremities Extremities: pulses symmetrical, No edema Peripheral Pulses: within normal limits - Abdominal General gastrointestinal: Present: soft, non-tender, non-distended, normal bowel sounds Male genitourinary: Present: normal - Integumentary Integumentary: Present: clear, warm, dry - Musculoskeletal Musculoskeletal: gait normal, strength equal bilaterally - Psychiatric Psychiatric: appropriate mood/affect, intact judgment & insight - Neurologic Neurologic: CNII-XII intact, moves all extremities Results - Labs CBC & Chem 7: 03/08/21 14:29 03/08/21 14:29 Labs: Abnormal lab results 03/08/21 03/08/21 Range/Units 14:29 14:29 RBC 2.77 L (3.65-5.03) M/mm3 Hgb 8.0 L (11.8-15.2) gm/dl Hct 24.5 L (35.5-45.6) % RDW 16.1 H (13.2-15.2) % [place] % (Auto) 11.2 H (0.0-7.3) % Eos % (Auto) 8.4 H (0.0-4.3) % Potassium 5.6 H D (3.6-5.0) mmol/L Carbon Dioxide 18 L (22-30) mmol/L BUN 94 H (9-20) mg/dL Creatinine 18.1 H D (0.8-1.3) mg/dL Glucose 145 H (75-100) mg/dL Assessment and Plan - Patient Problems (1) ESRD needing dialysis Current Visit: Yes Status: Acute Plan to address problem: Nephrology team consulted in ED for urgent dialysis, strict I's/O, monitor urine output every shift, afterload reduction, daily weight, avoid nephrotoxic agents. (2) Hyperkalemia Current Visit: Yes Status: Acute Plan to address problem: No EKG changes, supportive care, urgent dialysis. Insulin, D50, (3) Metabolic acidosis Current Visit: Yes Status: Acute Plan to address problem: Urgent dialysis, supportive care, continue medical management. Repeat BMP in a.m. (4) DVT prophylaxis Current Visit: Yes Status: Acute Plan to address problem: SCDs bilateral lower extremities while in bed, patient is ambulatory (5) Advance care planning Current Visit: Yes Status: Acute Plan to address problem: Disease education conducted, care plan discussed, diagnosis discussed, prognosis discussed, patient is full code, patient knowledges understanding and agreement with care plan, +30 minutes.
[2021-03-08] MEDS ORDERED: ONDANSETRON 4 MG/2 ML INJ IV PRN (17:30)
[2021-03-08] MEDS ORDERED: ACETAMINOPHEN 325 MG TAB PO PRN (17:30)
[2021-03-08] MEDS: hydrALAZINE 20 MG/1 ML INJ IV PRN (17:30)
[2021-03-08] MEDS ORDERED: HYDROmorphone 1 MG/1 ML INJ IV PRN (17:30)
[2021-03-08] MEDS ORDERED: oxyCODONE /ACETAMINOPHEN 5-325MG TAB PO PRN (18:00)
[2021-03-08] MEDS ORDERED: ALBUTEROL 2.5 MG/3 ML NEBU IH PRN (20:00)
[2021-03-08] MEDS ORDERED: carvediloL 6.25 MG TAB PO SCH (22:00)
[2021-03-08] MEDS ORDERED: SODIUM CHLORIDE 0.9% 100 ML IV PRN (22:47)
--- NOTE | 2021-03-08 22:48 | Event Note ---
Case discussed with emergency room physician, Chart was reviewed, events of this hospitalization was noted lab results, were also reviewed Patient is being admitted for hemodialysis, has been noted to have hypertension as well as volume overload and mild hyperkalemia Patient will benefit from hemodialysis treatment will order for hemodialysis treatment discussed with Lyla patient's nurse to call the on-call nurse for hemodialysis patient will need follow-up labs in the morning
--- NOTE | 2021-03-08 22:50 | Consultation ---
Past History Past Medical History: ESRD, hypertension Past Surgical History: Other (Dialysis access) Social history: single. denies: smoking, alcohol abuse, prescription drug abuse Family history: hypertension Medications and Allergies Allergies Allergy/AdvReac Type Severity Reaction Status Date / Time No Known Allergies Allergy Verified 03/08/21 13:58 Home Medications Medication Instructions Recorded Confirmed Last Taken Type carvediloL [Coreg] 6.25 mg PO BID 03/05/21 03/05/21 03/03/21 21:00 History hydrALAZINE [Apresoline TAB] 100 mg PO TID 03/05/21 03/05/21 03/03/21 21:00 History labetaloL [Labetalol 200mg TAB] 200 mg PO BID 03/05/21 03/05/21 03/03/21 21:00 History Active Meds: Active Medications Acetaminophen (Acetaminophen 325 Mg Tab) 650 mg PO Q4H PRN PRN Reason: Pain MILD(1-3)/Fever >100.5/MCLAIN Albuterol (Albuterol 2.5 Mg/3 Ml Nebu) 2.5 mg IH Q4HRT PRN PRN Reason: Shortness Of Breath Carvedilol (Carvedilol 6.25 Mg Tab) 6.25 mg PO BID DREW Hydralazine HCl (Hydralazine 100 Mg Tab) 100 mg PO TID DREW Hydralazine HCl (Hydralazine 20 Mg/1 Ml Inj) 10 mg IV Q6H PRN PRN Reason: Hypertension Last Admin: 03/08/21 17:30 Dose: 10 mg Documented by: Hydromorphone HCl (Hydromorphone 1 Mg/1 Ml Inj) 0.5 mg IV Q12H PRN PRN Reason: Pain , Severe (7-10) Sodium Chloride (Nacl 0.9%) 100 mls @ 999 mls/hr IV RICHIE PRN PRN Reason: Hypotension Labetalol HCl (Labetalol 200 Mg Tab) 200 mg PO BID DREW Ondansetron HCl (Ondansetron 4 Mg/2 Ml Inj) 4 mg IV Q8H PRN PRN Reason: Nausea And Vomiting Oxycodone/Acetaminophen (Oxycodone /Acetaminophen 5-325mg Tab) 1 tab PO Q8H PRN PRN Reason: Pain, Moderate (4-6) Sodium Chloride (Sodium Chloride 0.9% 10 Ml Flush Syringe) 10 ml IV BID DREW Sodium Chloride (Sodium Chloride 0.9% 10 Ml Flush Syringe) 10 ml IV PRN PRN PRN Reason: LINE FLUSH Exam - Vital Signs Vital signs: Vital Signs Temp Pulse Resp BP Pulse Ox 98.7 F 97 H 20 175/103 99 03/08/21 14:01 03/08/21 14:01 03/08/21 14:01 03/08/21 14:01 03/08/21 14:01 Results - Lab Results 03/08/21 14:29 03/08/21 14:29 Most recent lab results Calcium 8.5 mg/dL (8.4-10.2) 03/08/21 14:29
[2021-03-09] MEDS: hydrALAZINE 100 MG TAB PO SCH ×2 (01:00→10:01)
[2021-03-09] MEDS: hydrALAZINE 20 MG/1 ML INJ IV PRN (03:06)
[2021-03-09] MEDS ORDERED: cloNIDine 0.2 MG TAB PO SCH (08:00)
[2021-03-09 08:15] LABS: Calcium 9.5 mg/dL (8.4-10.2)
[2021-03-09] MEDS ORDERED: EPOETIN ALFA-EPBX 20,000 UNIT/1 ML VIAL SUB-Q SCH (08:30)
[2021-03-09] MEDS ORDERED: NIFEdipine XL 30 MG TAB PO SCH (10:00)
[2021-03-09] MEDS ORDERED: NIFEdipine XL 60 MG TAB PO SCH (10:00)
[2021-03-09 10:02] VITALS: BP 177/105
--- NOTE | 2021-03-09 11:22 | Discharge Summary ---
Providers - Providers Date of Admission: 03/08/21 17:01 Attending physician: FLASH DAMON MD 03/08/21 16:41 Consult to Physician [CONS] Stat Comment: Consulting Provider: CANDY LINK Physician Instructions: Reason For Exam: End-stage renal disease needing dialysis Primary care physician: PRODUCTION PROOFREADER Hospitalization Reason for admission: esrd Condition: Stable Hospital course: 60 YO Male with HTN, ESRD presents to ED for evaluation. Patient reports "I need dialysis. Patient states that he has not undergone his routine dialysis session over the past 3 weeks. Patient states that he has experienced shortness of breath, lightheadedness, over the past 1 day. Patient transported to [facility] via private vehicle for further care and evaluation of the aforementioned symptoms. The patient was seen and evaluated in the emergency department. All lab and imaging studies reviewed. Patient found to have end-stage renal disease in need of urgent dialysis, metabolic acidosis, and hyperkalemia. Nephrology team consulted in ED for urgent dialysis. Patient placed in observation status and admitted to medical floor. Patient denies fever, chills, chest pain, palpitation, productive cough, skin rash, recent ill contacts, known exposure to COVID-19. No prior admission for review. All medication listed at time of admission has been reconciled. Advanced care planning conducted in ED. 03/09: Continue supportive care, discussed with patient and case management advised the patient to wait for us to arrange outpatient dialysis, he states that his work demands that he is present tomorrow and will not wait, he reports that he has his Blood pressure medication. Risk of not having outpatient HD discussed in detail he verbalized understanding (1) ESRD needing dialysis Current Visit: Yes Status: Acute Plan to address problem: Nephrology team consulted in ED for urgent dialysis, strict I's/O, monitor urine output every shift, afterload reduction, daily weight, avoid nephrotoxic agents. (2) Hyperkalemia Current Visit: Yes Status: Acute Plan to address problem: No EKG changes, supportive care, urgent dialysis. Insulin, D50, (3) Metabolic acidosis Current Visit: Yes Status: Acute Plan to address problem: Urgent dialysis, supportive care, continue medical management. Repeat BMP in a.m. (4) Anemia of chronic Disease (5) HTN urgent C Disposition: LEFT AGAINST MED ADVICE Final Discharge Diagnosis (Prints w/discharge instructions): ESRD Time spent for discharge: 35 MINS Core Measure Documentation - Palliative Care Palliative Care/ Comfort Measures: Not Applicable - Core Measures Any of the following diagnoses?: none Exam - Physical Exam Narrative exam: General appearance: Present: mild distress - EENT Eyes: Present: PERRL ENT: hearing intact, clear oral mucosa - Neck Neck: Present: supple, normal ROM - Respiratory Respiratory effort: normal Respiratory: bilateral: diminished, rhonchi - Cardiovascular Heart Sounds: Present: S1 & S2. Absent: rub, click - Extremities Extremities: pulses symmetrical, No edema Peripheral Pulses: within normal limits - Abdominal General gastrointestinal: Present: soft, non-tender, non-distended, normal bowel sounds Male genitourinary: Present: normal - Integumentary Integumentary: Present: clear, warm, dry - Musculoskeletal Musculoskeletal: gait normal, strength equal bilaterally - Psychiatric Psychiatric: appropriate mood/affect, intact judgment & insight - Neurologic Neurologic: CNII-XII intact, moves all extremities - Constitutional Vitals: Temp Pulse Resp BP Pulse Ox 98.7 F 80 18 177/105 99 03/09/21 04:45 03/09/21 04:45 03/09/21 04:45 03/09/21 10:00 03/08/21 22:02 Plan Follow up with: PRIMARY CAREMD [Primary Care Provider] - 3-5 Days
== END 2021-03-09 10:40 | disposition left against medical advice (07) ==
LOC: ED 13:55 → 3A 17:01
PROVIDERS: ADMIT Internal Medicine; ATTEND Internal Medicine
DX: I12.0 Hypertensive chronic kidney disease with stage 5 chronic kidney disease or end stage renal disease (principal); N18.6 End stage renal disease; E87.2 Acidosis; E87.70 Fluid overload, unspecified; E87.5 Hyperkalemia; E11.22 Type 2 diabetes mellitus with diabetic chronic kidney disease; D63.1 Anemia in chronic kidney disease; Z99.2 Dependence on renal dialysis; Z79.4 Long term (current) use of insulin; Z79.899 Other long term (current) drug therapy; Z98.890 Other specified postprocedural states
CPT/HCPCS: 36415; 71045; 80048; 85025; 96374; 96375; 96376; 99291; G0257; G0378; J0360; J1815

== ENCOUNTER 2021-03-18 23:41 | Observation (INO) | payer MEDICARE ==
[2021-03-19 04:54] LABS: Basophils # (Auto) 0.1 K/mm3 (0.0-0.1); Basophils % (Auto) 0.8 % (0.0-1.8); Eosinophils # (Auto) 0.4 K/mm3 (0.0-0.4); Eosinophils % (Auto) 6.3 % (0.0-4.3); Hematocrit 24.8 % (35.5-45.6); Hemoglobin 8.4 gm/dl (11.8-15.2); Lymphocytes # (Auto) 1.8 K/mm3 (1.2-5.4); Lymphocytes % (Auto) 30.2 % (13.4-35.0); Mean Corpuscular HGB Conc 34 % (32-34); Mean Corpuscular Volume 90 fl (84-94); Monocytes # (Auto) 0.6 K/mm3 (0.0-0.8); Monocytes % (Auto) 10.1 % (0.0-7.3); Platelet Count 186 K/mm3 (140-440); Red Blood Count 2.77 M/mm3 (3.65-5.03); Red Cell Distribution Width 15.5 % (13.2-15.2)
[2021-03-19 05:16] LABS: Calcium 8.8 mg/dL (8.4-10.2)
[2021-03-19 05:21] LABS: Alanine Aminotransferase 5 units/L (7-56)
[2021-03-19 05:47] LABS: Bilirubin,Direct < 0.2 mg/dL (0-0.2)
[2021-03-19] MEDS ORDERED: CALCIUM CHLORIDE 1,000 MG/10 ML SDV IVP ONE (05:55)
[2021-03-19] MEDS ORDERED: INSULIN REGULAR, HUMAN 100 UNITS/1 ML IV ONE ×2 (05:56→06:20)
[2021-03-19] MEDS ORDERED: SODIUM POLYSTYRENE 15 GM/60 ML ORAL LIQD PO ONE (05:56)
[2021-03-19] MEDS ORDERED: DEXTROSE 50% IN WATER (25GM) 50 ML VIAL IV ONE (05:56)
[2021-03-19 06:07] LABS: Chol/HDL Ratio 2.17 %; HDL Cholesterol 73 mg/dL (40-59); LDL Cholesterol,Direct 83 mg/dL (50-130)
--- NOTE | 2021-03-19 06:11 | XRay Report ---
CHEST 1 VIEW 03/19/2021 5:01 AM INDICATION / CLINICAL INFORMATION: weakness. COMPARISON: 03/08/2021 FINDINGS: SUPPORT DEVICES: None. HEART / MEDIASTINUM: No significant abnormality. LUNGS / PLEURA: No significant pulmonary or pleural abnormality. No pneumothorax. ADDITIONAL FINDINGS: No significant additional findings. IMPRESSION: 1. No acute findings. Signer Name: Cassius Cardona MD Signed: 03/19/2021 6:06 AM Workstation Name: [id number]
[2021-03-19] MEDS ORDERED: CALCIUM GLUCONATE 1,000 MG in SODIUM CHLORIDE 0.9% 100 ML IV ONE (06:20)
[2021-03-19] MEDS ORDERED: SODIUM BICARB 8.4% 50 MEQ/50 ML SYRINGE IV ONE (06:20)
--- NOTE | 2021-03-19 06:20 | Emergency Department Report ---
ED General Adult HPI - General Chief complaint: High BP Stated complaint: KIDNEY Time Seen by Provider: 03/19/21 06:04 Source: patient Mode of arrival: Ambulatory Limitations: No Limitations - History of Present Illness Initial comments: Chief complaint: "I moved here for a new job. I came here for dialysis." HPI: This is a 60-year-old male with history of hypertension, end-stage renal disease on Friday in [facility] who presents with request for hemodialysis. Last received hemodialysis at [facility] on . He has a filling carrier who is attempting to place him at hemodialysis clinic in [place]. He has yet to receive an assigned dialysis chair. Patient feels mildly woozy. Otherwise he is in his normal state of health. He is vaccinated for COVID-19. He denies any other concerns or symptoms he denies fever, headache, blurry vision, chest pain, shortness of breath.. He has obtained a new job with [employer]. 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 According to electronic medical record, this patient was admitted twice this month for dialysis treatment. I have ordered consult for case management. -: days(s) (Last received hemodialysis 4 days ago at [facility]) Severity scale (0 -10): 0 (Denies pain or discomfort) Consistency: constant (Mild lightheadedness) Improves with: rest Associated Symptoms: denies other symptoms Treatments Prior to Arrival: none - Related Data Home Medications Medication Instructions Recorded Confirmed Last Taken hydrALAZINE [Apresoline TAB] 100 mg PO TID 03/05/21 03/05/21 03/03/21 21:00 labetaloL [Labetalol 200mg TAB] 200 mg PO BID 03/05/21 03/05/21 03/03/21 21:00 Allergies Allergy/AdvReac Type Severity Reaction Status Date / Time No Known Allergies Allergy Verified 03/08/21 13:58 ED Review of Systems ROS: Stated complaint: KIDNEY Other details as noted in HPI Comment: All other systems reviewed and negative Constitutional: denies: chills, fever Respiratory: denies: cough, shortness of breath Cardiovascular: denies: chest pain Gastrointestinal: denies: abdominal pain, nausea, vomiting Neurological: denies: headache ED Past Medical Hx - Past Medical History Previous Medical History?: Yes Hx Hypertension: Yes Hx Congestive Heart Failure: No Hx Diabetes: No Hx Renal Disease: Yes (MWF DIALYSIS) Hx Asthma: No Additional medical history: left arm fistula for HD - Surgical History Past Surgical History?: Yes Additional Surgical History: left arm fistula - Family History Family history: hypertension - Social History Smoking Status: Former Smoker Substance Use Type: None - Medications Home Medications: Home Medications Medication Instructions Recorded Confirmed Last Taken Type hydrALAZINE [Apresoline TAB] 100 mg PO TID 03/05/21 03/05/21 03/03/21 21:00 History labetaloL [Labetalol 200mg TAB] 200 mg PO BID 03/05/21 03/05/21 03/03/21 21:00 History ED Physical Exam - General Limitations: No Limitations General appearance: alert, in no apparent distress, other (Calm cooperative no acute distress) - Head Head exam: Present: atraumatic, normocephalic - Eye Eye exam: Present: normal appearance - ENT ENT exam: Present: mucous membranes moist - Neck Neck exam: Present: normal inspection - Respiratory Respiratory exam: Present: normal lung sounds bilaterally. Absent: respiratory distress, wheezes, rales, stridor - Cardiovascular Cardiovascular Exam: Present: regular rate, normal rhythm, normal heart sounds. Absent: systolic murmur, diastolic murmur, rubs, gallop - GI/Abdominal GI/Abdominal exam: Present: soft, normal bowel sounds. Absent: distended, tenderness, guarding, rebound - Rectal Rectal exam: Present: deferred - Extremities Exam Extremities exam: Present: normal inspection, other (Left forearm fistula: Posi tive thrill positive bruit) - Neurological Exam Neurological exam: Present: alert, oriented X3 - Psychiatric Psychiatric exam: Present: normal affect, normal mood - Skin Skin exam: Present: warm, dry, intact, normal color. Absent: rash ED Course Vital Signs 03/19/21 03/19/21 03/19/21 02:44 04:40 04:46 Temperature 98.4 F Pulse Rate 74 Respiratory 20 Rate Blood Pressure 174/104 139/58 139/58 O2 Sat by Pulse 99 100 96 Oximetry 03/19/21 03/19/21 03/19/21 05:00 06:28 06:30 Temperature Pulse Rate 72 73 Respiratory 13 13 Rate Blood Pressure 139/58 156/89 156/89 O2 Sat by Pulse 99 100 93 Oximetry 03/19/21 06:45 Temperature Pulse Rate 72 Respiratory Rate Blood Pressure O2 Sat by Pulse Oximetry - Reevaluation(s) Reevaluation #1: 03/19/21 07:30 [place] notified of supervisor finish end to arrange for dialysis nurse ED Medical Decision Making - Lab Data Result diagrams: 03/19/21 04:06 03/19/21 04:06 Laboratory Results - last 24 hr 03/19/21 03/19/21 03/19/21 04:06 04:06 04:06 WBC 6.1 RBC 2.77 L Hgb 8.4 L Hct 24.8 L MCV 90 MCH 30 MCHC 34 RDW 15.5 H Plt Count 186 Lymph % (Auto) 30.2 [place] % (Auto) 10.1 H Eos % (Auto) 6.3 H Baso % (Auto) 0.8 Lymph # (Auto) 1.8 [place] # (Auto) 0.6 Eos # (Auto) 0.4 Baso # (Auto) 0.1 Seg Neutrophils % 52.6 Seg Neutrophils # 3.2 Sodium 144 Potassium 6.9 H* Chloride 98.2 Carbon Dioxide 23 Anion Gap 30 BUN 107 H Creatinine 17.8 H Estimated GFR 3 BUN/Creatinine Ratio 6 Glucose 94 Calcium 8.8 Total Bilirubin 0.30 Direct Bilirubin < 0.2 Indirect Bilirubin 0.1 AST 9 ALT 5 L Alkaline Phosphatase 59 Troponin T 0.080 H Total Protein 7.8 Albumin 5.0 Albumin/Globulin Ratio 1.8 Triglycerides 87 Cholesterol 159 LDL Cholesterol Direct 83 HDL Cholesterol 73 H Cholesterol/HDL Ratio 2.17 - EKG Data -: EKG Interpreted by Va EKG shows normal: sinus rhythm Rate: normal - EKG Data 03/19/21 06:23 EKG obtained 619 EKG interpreted by pr Rate 70 bpm left axis deviation prolonged QTC increased amplitude T waves with peaked morphology - Medical Decision Making Mr. Hannon presents with uremic complications of end-stage renal disease including hyperkalemia due to treatment noncompliance. Patient mildly symptomatic with lightheadedness. Potassium 6.9. BUN 107 bicarbonate normal at 23. Creatinine 17.8. Troponin ordered per triage protocol. I do not suspect type II NSTEMI. I do suspect troponin is mildly increased in the setting of decreased renal clearance. Patient does not have signs or symptoms of ACS. He has only mildly elevated blood pressure which would not induce demand ischemia. [facility] Stained Glass Dr. Jackson, consulted, He placed dialsys orders. Patient is admitted to the hospitalist service. Hyperkalemia addressed with calcium gluconate IV, IV dextrose, IV regular insulin, IV sodium bicarbonate. Hospitalist recommended CCU admission. I have placed bridging order to the CCU. Critical Care Time: Yes Critical care time in (mins) excluding proc time.: 40 Critical care attestation.: If time is entered above; I have spent that time in minutes in the direct care of this critically ill patient, excluding procedure time. 40 minutes of critical care time excluding procedures were used in the care of the patient. I came immediately to the bedside upon patient's arrival to treatment room. I discussed treatment plan with the nursing team members. I reviewed electronic record. Patient required multiple interventions and reassessments. I spoke with multiple consultants including hospitalist and sanitation truck cleaner. Concern for impending arrhythmia with hyperkalemic EKG changes. ED Disposition Clinical Impression: Acute hyperkalemia, Missed dialysis, End-stage renal disease on hemodialysis, Uremia of renal origin, Hypertensive urgency Disposition: [id number] OP ADMIT IP TO THIS HOSP Is pt being admited?: Yes Does the pt Need Aspirin: No Condition: Fair
[2021-03-19] MEDS ORDERED: DEXTROSE 50% IN WATER (25GM) 50 ML SYRINGE IV ONE (06:22)
[2021-03-19] MEDS ORDERED: SODIUM CHLORIDE 0.9% 100 ML IV PRN (07:30)
[2021-03-19] MEDS ORDERED: ONDANSETRON 4 MG/2 ML INJ IV PRN (08:24)
[2021-03-19] MEDS ORDERED: oxyCODONE /ACETAMINOPHEN 5-325MG TAB PO PRN (08:24)
[2021-03-19] MEDS ORDERED: ACETAMINOPHEN 325 MG TAB PO PRN (08:24)
--- NOTE | 2021-03-19 08:34 | History and Physical Report ---
History of Present Illness Date of examination: 03/19/21 Date of admission: 03/19/2021 Chief complaint: Fatigue, nausea History of present illness: Danny Hannon is a 60-year-old male with past medical history of end-stage renal disease on hemodialysis, HTN who presents for complaint of fatigue and nausea. Patient states that symptom onset was yesterday. He did not have any vomiting associated with the symptoms of nausea. He denied any active headache, chest pain, shortness of breath, abdominal pain, diarrhea, peripheral nerve pain. He states that he recently relocated from [facility]. He is an active hemodialysis patient and stated that his last treatment was on at [facility]. He missed his dialysis session on Friday. He states that he is still in the process of setting up for an outpatient hemodialysis chair. Remainder of ROS negative except for stated above. Significant lab values include elevated K: 6.9, elevated Cr: 17.8, peaked T waves noted in EKG and precordial leads V1-V4. ED course: Sodium bicarb IV, calcium chloride IV, calcium gluconate IV, D50 plus insulin. PMHx: ESRD on HD, HTN, nicotine abuse PSHx: Denies FHx: Reviewed noncontributory SHx: Tobacco use-former smoker, quit recently ETOH Use-denies Recreational Drug Use-denies Occupation-unemployed PCP-does not have Nephrologistdoes not have Single Recently relocated from [facility] Medications and Allergies Allergies Allergy/AdvReac Type Severity Reaction Status Date / Time No Known Allergies Allergy Verified 03/08/21 13:58 Home Medications Medication Instructions Recorded Confirmed Last Taken Type hydrALAZINE [Apresoline TAB] 100 mg PO TID 03/05/21 03/05/21 03/03/21 21:00 History labetaloL [Labetalol 200mg TAB] 200 mg PO BID 03/05/21 03/05/21 03/03/21 21:00 History Active Meds: Active Medications Acetaminophen (Acetaminophen 325 Mg Tab) 650 mg PO Q4H PRN PRN Reason: Pain MILD(1-3)/Fever >100.5/MCLAIN Heparin Sodium (Porcine) (Heparin 5,000 Unit/1 Ml Vial) 5,000 unit SUB-Q Q12HR DREW Hydralazine HCl (Hydralazine 100 Mg Tab) 100 mg PO TID DREW Sodium Chloride (Nacl 0.9%) 100 mls @ 999 mls/hr IV RICHIE PRN PRN Reason: Hypotension Labetalol HCl (Labetalol 200 Mg Tab) 200 mg PO BID DREW Ondansetron HCl (Ondansetron 4 Mg/2 Ml Inj) 4 mg IV Q8H PRN PRN Reason: Nausea And Vomiting Oxycodone/Acetaminophen (Oxycodone /Acetaminophen 5-325mg Tab) 1 tab PO Q6H PRN PRN Reason: Pain, Moderate (4-6) Sodium Chloride (Sodium Chloride 0.9% 10 Ml Flush Syringe) 10 ml IV BID DREW Sodium Chloride (Sodium Chloride 0.9% 10 Ml Flush Syringe) 10 ml IV PRN PRN PRN Reason: LINE FLUSH Review of Systems All systems: negative (Nausea, fatigue) Exam - Physical Exam Narrative exam: Physical Exam: GENERAL APPEARANCE: Well developed, well nourished, alert and cooperative, and appears to be in no acute distress. HEAD: normocephalic. EYES: PERRL, EOMI. Vision is grossly intact. EARS: No gross deformities NOSE: No nasal discharge. THROAT: Oral cavity and pharynx normal. No inflammation, swelling, exudate, or lesions. Teeth and gingiva in good general condition. NECK: Neck supple, non-tender without lymphadenopathy, masses or thyromegaly. CARDIAC: Normal S1 and S2. No S3, S4 or murmurs. Rhythm is regular. There is no peripheral edema, cyanosis or pallor. Extremities are warm and well perfused. Capillary refill is less than 2 seconds. No carotid bruits. LUNGS: Clear to auscultation and percussion without rales, rhonchi, wheezing or diminished breath sounds. ABDOMEN: Positive bowel sounds. Soft, nondistended, nontender. No guarding or rebound. No masses. MUSKULOSKELETAL: Adequately aligned spine. ROM intact spine and extremities. No joint erythema or tenderness. Normal muscular development. Normal gait. BACK: Examination of the spine reveals normal gait and posture EXTREMITIES: Left forearm fistula noted, bruit auscultated. no significant deformity or joint abnormality. No edema. Peripheral pulses intact. No varicosities. NEUROLOGICAL: CN II-XII intact. Strength and sensation symmetric and intact throughout. Reflexes 2+ throughout. PSYCHIATRIC: The mental examination revealed the patient was oriented to person, place, and time. - Constitutional Vitals: Temp Pulse Resp BP Pulse Ox 98.2 F 72 13 156/89 93 03/19/21 08:02 03/19/21 06:45 03/19/21 06:30 03/19/21 06:30 03/19/21 06:30 HEART Score - HEART Score Troponin: Troponin T 0.080 ng/mL (0.00-0.029) H 03/19/21 04:06 Results - Labs CBC & Chem 7: 03/19/21 04:06 03/19/21 04:06 Labs: Laboratory Last Values WBC 6.1 K/mm3 (4.5-11.0) 03/19/21 04:06 RBC 2.77 M/mm3 (3.65-5.03) L 03/19/21 04:06 Hgb 8.4 gm/dl (11.8-15.2) L 03/19/21 04:06 Hct 24.8 % (35.5-45.6) L 03/19/21 04:06 MCV 90 fl (84-94) 03/19/21 04:06 MCH 30 pg (28-32) 03/19/21 04:06 MCHC 34 % (32-34) 03/19/21 04:06 RDW 15.5 % (13.2-15.2) H 03/19/21 04:06 Plt Count 186 K/mm3 (140-440) 03/19/21 04:06 Lymph % (Auto) 30.2 % (13.4-35.0) 03/19/21 04:06 [place] % (Auto) 10.1 % (0.0-7.3) H 03/19/21 04:06 Eos % (Auto) 6.3 % (0.0-4.3) H 03/19/21 04:06 Baso % (Auto) 0.8 % (0.0-1.8) 03/19/21 04:06 Lymph # (Auto) 1.8 K/mm3 (1.2-5.4) 03/19/21 04:06 [place] # (Auto) 0.6 K/mm3 (0.0-0.8) 03/19/21 04:06 Eos # (Auto) 0.4 K/mm3 (0.0-0.4) 03/19/21 04:06 Baso # (Auto) 0.1 K/mm3 (0.0-0.1) 03/19/21 04:06 Seg Neutrophils % 52.6 % (40.0-70.0) 03/19/21 04:06 Seg Neutrophils # 3.2 K/mm3 (1.8-7.7) 03/19/21 04:06 Sodium 144 mmol/L (137-145) 03/19/21 04:06 Potassium 6.9 mmol/L (3.6-5.0) H* 03/19/21 04:06 Chloride 98.2 mmol/L (98-107) 03/19/21 04:06 Carbon Dioxide 23 mmol/L (22-30) 03/19/21 04:06 Anion Gap 30 mmol/L 03/19/21 04:06 BUN 107 mg/dL (9-20) H 03/19/21 04:06 Creatinine 17.8 mg/dL (0.8-1.3) H 03/19/21 04:06 Estimated GFR 3 ml/min 03/19/21 04:06 BUN/Creatinine Ratio 6 % 03/19/21 04:06 Glucose 94 mg/dL (75-100) 03/19/21 04:06 POC Glucose 96 mg/dL (70-105) 03/19/21 07:48 Calcium 8.8 mg/dL (8.4-10.2) 03/19/21 04:06 Total Bilirubin 0.30 mg/dL (0.1-1.2) 03/19/21 04:06 Direct Bilirubin < 0.2 mg/dL (0-0.2) 03/19/21 04:06 Indirect Bilirubin 0.1 mg/dL 03/19/21 04:06 AST 9 units/L (5-40) 03/19/21 04:06 ALT 5 units/L (7-56) L 03/19/21 04:06 Alkaline Phosphatase 59 units/L (35-129) 03/19/21 04:06 Troponin T 0.080 ng/mL (0.00-0.029) H 03/19/21 04:06 Total Protein 7.8 g/dL (6.3-8.2) 03/19/21 04:06 Albumin 5.0 g/dL (3.9-5) 03/19/21 04:06 Albumin/Globulin Ratio 1.8 % 03/19/21 04:06 Triglycerides 87 mg/dL (2-149) 03/19/21 04:06 Cholesterol 159 mg/dL (50-199) 03/19/21 04:06 LDL Cholesterol Direct 83 mg/dL (50-130) 03/19/21 04:06 HDL Cholesterol 73 mg/dL (40-59) H 03/19/21 04:06 Cholesterol/HDL Ratio 2.17 % 03/19/21 04:06 Assessment and Plan Assessment and plan: 1. Acute Hyperkalemia Likely in the setting of missed hemodialysis session. ED course: Sodium bicarb IV, calcium chloride IV, calcium gluconate IV, D50 plus insulin. Nephrology consulted by ED. Dialysis orders in. K: 6.9, CR 17.8, EKG: Peaked T waves noted in precordial leads V1 through V4 Continuous telemetry ordered Hemodialysis ordered by nephrology Follow repeat lab. Daily BMP 2. ESRD on HD Diagnosed 5 years ago, recently relocated from [place], last HD treatment on last -Left forearm fistula Avoid nephrotoxic agents Track intake and output Nephrology consulted 3. Hypertension Resume Home medications: hydralazine and labetalol 4. Medication noncompliance Does not know medications well, has not been taking them, is not set up with nephrology outpatient for hemodialysis 5. Nicotine abuse Recently quit Counseled on continued tobacco cessation 6. DVT prophylaxis Heparin 5000 units subcu twice daily 7. Advance care planning Case management consulted for outpatient hemodialysis set up and discharge planning
--- NOTE | 2021-03-19 09:11 | Consultation ---
History of Present Illness - Reason for Consult Consult date: 03/19/21 end stage renal disease, hyperkalemia Requesting physician: ZEE PETER - History of Present Illness 60-year-old male with a history of End-stage renal disease for about 5 years now on hemodialysis who came from [facility] to look for a job in [place] at the airport. Patient says he missed his transportation to go back to [place] and has been stuck here. He had made arrangements to get outpatient dialysis but unfortunately it fell through. He has been dialyzing in the emergency room here and presents again because of blurred vision, nausea and shortness of breath on exertion. He also complains of vague chest discomfort. His last dialysis was on last week Past History Past Medical History: ESRD, hypertension Past Surgical History: Other (Left upper extremity AV fistula) Social history: Lives alone. denies: smoking (Quit smoking 6 months ago), alcohol abuse (With drinking alcohol 6 months ago), prescription drug abuse Family history: other (No know the cause of of his father. Mother at age 83 of "old age". 3 brothers and 3 sisters are in good health). denies: no significant family history Medications and Allergies Allergies Allergy/AdvReac Type Severity Reaction Status Date / Time No Known Allergies Allergy Verified 03/08/21 13:58 Home Medications Medication Instructions Recorded Confirmed Last Taken Type hydrALAZINE [Apresoline TAB] 100 mg PO TID 03/05/21 03/05/21 03/03/21 21:00 History labetaloL [Labetalol 200mg TAB] 200 mg PO BID 03/05/21 03/05/21 03/03/21 21:00 History Acetaminophen [Acetaminophen TAB] 650 mg PO Q4H PRN tablet 03/19/21 Unknown Rx Active Meds: Active Medications Acetaminophen (Acetaminophen 325 Mg Tab) 650 mg PO Q4H PRN PRN Reason: Pain MILD(1-3)/Fever >100.5/MCLAIN Heparin Sodium (Porcine) (Heparin 5,000 Unit/1 Ml Vial) 5,000 unit SUB-Q Q12HR DREW Hydralazine HCl (Hydralazine 100 Mg Tab) 100 mg PO TID DREW Sodium Chloride (Nacl 0.9%) 100 mls @ 999 mls/hr IV RICHIE PRN PRN Reason: Hypotension Labetalol HCl (Labetalol 200 Mg Tab) 200 mg PO BID DREW Ondansetron HCl (Ondansetron 4 Mg/2 Ml Inj) 4 mg IV Q8H PRN PRN Reason: Nausea And Vomiting Oxycodone/Acetaminophen (Oxycodone /Acetaminophen 5-325mg Tab) 1 tab PO Q6H PRN PRN Reason: Pain, Moderate (4-6) Sodium Chloride (Sodium Chloride 0.9% 10 Ml Flush Syringe) 10 ml IV BID DREW Sodium Chloride (Sodium Chloride 0.9% 10 Ml Flush Syringe) 10 ml IV PRN PRN PRN Reason: LINE FLUSH Review of Systems All systems: negative Genitourinary Male: other (Makes very little urine) Musculoskeletal: other (Joint stiffness) Neurological: headaches Exam - Vital Signs Vital signs: Vital Signs Temp Pulse Resp BP Pulse Ox 98.4 F 74 20 174/104 99 03/19/21 02:44 03/19/21 02:44 03/19/21 02:44 03/19/21 02:44 03/19/21 02:44 - Physical Exam Narrative exam: Middle-aged -O[place] male lying in no acute distress HEENT: Normocephalic atraumatic, pupils equal round reactive to light Normal oropharynx, Neck: Supple, no venous distention, no goiter CVS: S1S2 RRR No murmur, No rub or gallop Lungs: Clear to auscultation, no use of accessory muscles of respiration Abdomen: Full, soft, nontender, no organomegaly no bruit, bowel sounds are present Extremities: No edema, no cyanosis or clubbing, left upper extremity AV fistula Urinary: Deferred Musculo-skeletal: No joint deformities or swelling Neuro: Awake, alert, no focal deficits Results - Lab Results 03/19/21 04:06 03/19/21 15:32 Most recent lab results Calcium 8.8 mg/dL (8.4-10.2) 03/19/21 04:06 Assessment and Plan - Patient Problems (1) Hyperkalemia Status: Acute (2) Acidosis Status: Acute Plan to address problem: Secondary to missed dialysis. Hemodialysis today. (3) Anemia in chronic kidney disease, on chronic dialysis Status: Acute Plan to address problem: Secondary to missed dialysis thus missing doses of erythropoietin. Give erythropoietin on dialysis (4) End-stage renal disease on hemodialysis Status: Acute Plan to address problem: Discuss about making arrangements to continue dialysis as an outpatient in the clinic in [facility] if he is going to remain here. I discussed with him to call his clinic in [place] to expedite the arrangements (5) Hypertensive chronic kidney disease with stage 5 chronic kidney disease or end stage renal disease Status: Acute Plan to address problem: Follow-up blood pressure on current medications
[2021-03-19 09:21] LABS: Calcium 8.6 mg/dL (8.4-10.2)
--- NOTE | 2021-03-19 09:56 | Electrocardiograph Report ---
[facility] Test Date: 2021-03-19 Test Time: 06:19:02 Pat Name: MYRON LYNCH Department: Room: [facility] Gender: M Child Support Investigator: VONDA : 1960 Requested By: ADITYA JAY Order Number: [id number] Reading MD: Mu Falk Measurements Intervals [place] Rate: 72 P: 66 [place]: 171 QRS: -17 QRSD: 102 T: -15 QT: 429 QTc: 470 Interpretive Statements Sinus rhythm Probable left ventricular hypertrophy Inferolateral T wave inversions, consider ischemia Compared to ECG 03/04/2021 14:54:15 T-wave abnormality now present Electronically Signed On 03-19-2021 9:55:50 EDT by Mu Falk
[2021-03-19] MEDS ORDERED: HEPARIN 5,000 UNIT/1 ML VIAL SUB-Q SCH (10:00)
[2021-03-19] MEDS ORDERED: hydrALAZINE 100 MG TAB PO SCH (14:00)
--- NOTE | 2021-03-19 17:48 | Discharge Summary ---
Providers - Providers Date of Admission: 03/19/21 08:24 Date of discharge: 03/19/21 Attending physician: SHEREE FERRARA MD 03/19/21 06:26 Consult to Case Management [CONS] Stat Services Needed at Discharge: Other Notified:: n Additional Physician Instructions: Patient needs a dialysis center. 03/19/21 06:34 Consult to Physician [CONS] Stat Comment: Dr. Bentley spoke with Dr. Jackson @ 0633 Consulting Provider: ZENAIDA JACKSON Physician Instructions: Reason For Exam: hyperkalemia esrd Primary care physician: RIVET PASSER Hospitalization Reason for admission: Hyperkalemia Condition: Fair Hospital course: History of present illness: Danny Hannon is a 60-year-old male with past medical history of end-stage renal disease on hemodialysis, HTN who presents for complaint of fatigue and nausea. Patient states that symptom onset was yesterday. He did not have any vomiting associated with the symptoms of nausea. He denied any active headache, chest pain, shortness of breath, abdominal pain, diarrhea, peripheral nerve pain. He states that he recently relocated from [facility]. He is an active hemodialysis patient and stated that his last treatment was on at [facility]. He missed his dialysis session on Friday. He states that he is still in the process of setting up for an outpatient hemodialysis chair. Remainder of ROS negative except for stated above. Significant lab values include elevated K: 6.9, elevated Cr: 17.8, peaked T waves noted in EKG and precordial leads V1-V4. ED course: Sodium bicarb IV, calcium chloride IV, calcium gluconate IV, D50 plus insulin. PMHx: ESRD on HD, HTN, nicotine abuse PSHx: Denies FHx: Reviewed noncontributory SHx: Tobacco use-former smoker, quit recently ETOH Use-denies Recreational Drug Use-denies Occupation-unemployed PCP-does not have Nephrologistdoes not have Single Recently relocated from [facility] 1. Acute Hyperkalemia Likely in the setting of missed hemodialysis session. ED course: Sodium bicarb IV, calcium chloride IV, calcium gluconate IV, D50 plus insulin. Nephrology consulted by ED. Dialysis orders in. K: 6.9, CR 17.8, EKG: Peaked T waves noted in precordial leads V1 through V4 Continuous telemetry ordered Hemodialysis ordered by nephrology Follow repeat lab. Now resolved. Repeat potassium is 4.8. Patient is asymptomatic and hemodynamically stable. No cardiac irregularities noted on telemetry 2. ESRD on HD Diagnosed 5 years ago, recently relocated from [place], last HD treatment on last -Left forearm fistula Avoid nephrotoxic agents Track intake and output Nephrology consulted 3. Hypertension Resume Home medications: hydralazine and labetalol 4. Medication noncompliance Does not know medications well, has not been taking them, is not set up with nephrology outpatient for hemodialysis 5. Nicotine abuse Recently quit Counseled on continued tobacco cessation 6. DVT prophylaxis Heparin 5000 units subcu twice daily 7. Advance care planning Case management consulted for outpatient hemodialysis set up and discharge planning. Case management has set up outpatient hemodialysis chair. Disposition: DC-01 TO HOME OR SELFCARE Final Discharge Diagnosis (Prints w/discharge instructions): Hyperkalemia Core Measure Documentation - Palliative Care Palliative Care/ Comfort Measures: Not Applicable - Core Measures Any of the following diagnoses?: none Exam - Constitutional Vitals: Temp Pulse Resp BP Pulse Ox 98.3 F 77 18 132/75 100 03/19/21 14:25 03/19/21 14:25 03/19/21 14:25 03/19/21 16:45 03/19/21 16:45 Plan Activity: no restrictions Weight Bearing Status: Full Weight Bearing Plan of Treatment: Danny Hannon. You admitted for hyperkalemia (high potassium) due to missed hemodialysis treatments. we treated you with medication to lower your potassium and you ultimately received hemodialysis while you were here. A apprenticeship consultant saw you. Case management set you up with a direct dialysis chair so that you can go outpatient. You will not be written any prescriptions today. We advise you follow-up with the primary care physician in 3 to 5 days. We advise you follow-up with your apprenticeship consultant in 1 week. Follow up with: RENUKA MCGRAW MD [Primary Care Provider] - 7 Days
[2021-03-19 18:13] VITALS: BP 138/80
== END 2021-03-19 20:04 | disposition home or self-care (01) ==
LOC: ED 23:41 → IMCU 03-19 08:24
PROVIDERS: ADMIT Internal Medicine; ATTEND Internal Medicine
DX: I16.0 Hypertensive urgency (principal); I12.0 Hypertensive chronic kidney disease with stage 5 chronic kidney disease or end stage renal disease; N18.6 End stage renal disease; E87.5 Hyperkalemia; E87.2 Acidosis; D63.1 Anemia in chronic kidney disease; Z99.2 Dependence on renal dialysis; Z91.19 Patient's noncompliance with other medical treatment and regimen; Z87.891 Personal history of nicotine dependence
CPT/HCPCS: 36415; 71045; 80048; 80061; 80076; 82962; 84132; 84484; 85025; 93005; 96365; 96372; 96375; 99291; G0257; G0378; J0610; J1644; J1815